=== PATIENT | female | born 1995 | race Caucasian/White ===

== ENCOUNTER → 2016-10-16 | Outpatient (CLI) | payer OTHER ==
--- NOTE | 2016-10-16 12:00 | REP ---
Chest x-ray: Two views. History: Positive PPD TB screening. . Comparison study: No comparisons . Findings: The lungs are well inflated and free of infiltrate. The pleural angles are sharp. The heart size is normal. Pulmonary vasculature is not increased. No significant bony abnormality is seen. Impression: Negative chest x-ray. Signed by Dorian Hankins MD 10/16/2016 11:51 A
== END | disposition home or self-care (01) ==
LOC: M WUC 09:09 → M RAD 11:00 → EDSTATUS 10-17 13:04
PROVIDERS: ATTEND Physician Assistant
DX: Z11.1 Encounter for screening for respiratory tuberculosis (principal)

== ENCOUNTER → 2016-10-19 | Outpatient (CLI) | payer OTHER | LOC: M LAB 10:05 | DX: R76.11 Nonspecific reaction to tuberculin skin test without active tuberculosis (principal) ==